=== PATIENT | female | born 1945 | race African-American/Black ===

== ENCOUNTER → 2017-07-31 | Outpatient (CLI) | payer MEDICARE, MEDICAID ==
[~2017-07-31] MED LIST: ASPIRIN81 MG PO; BIOTIN1000 MCG PO; CIPRO 500MG TA500 MG PO; CLINORIL GENER150 MG PO; CLOPIDOGREL75 M1; DONEPEZIL 5MG TA5 MG PO; GABAPENTIN100 M1 PO; INDOMETHACIN 2525 MG PO; LASIX20 MG PO; LISINOPRIL AND1 TAB PO; LISINOPRIL/HCTZ1 TA3 PO; LOSARTAN POTASS1 TA3; MACROBID 100MG100 MG PO; METAMUCIL1.7 GM PO; NOVOLIN N100 U/ML SC; NOVOLIN R100 U/ML SC; PRAVACHOL20 MG PO
--- NOTE | 2017-07-31 12:26 | RADIOLOGY REPORT PS360 ---
ARTERIAL/[id number] PVD peripheral vascular disease with stents bilaterally, ORDERING PHYSICIAN: TONIE PHILLIPS DPM PATIENT AGE: 71 years TECHNIQUE: Segmental pressures obtained of both right and left leg. These are compared to brachial blood pressure to yield index at each level sampled including summary NITHIN. The data sheets from the procedure are available in PACS FINDINGS Rest study only performed today No prior studies available for comparison. Blood pressures reported are in millimeters mercury. RIGHT LEG NITHIN = 0.4. Brachial BP: 184 Thigh BP: 83 Calf BP: 91 Ankle PT: 80 Ankle DP : 81 Digit =42 LEFT LEG NITHIN = 0.8 Brachial BPD: 177 Thigh BP: 183 Calf BP: 156 Ankle PT:141 Ankle DP: 122 Digit = 126 Pulses and waveforms: Diminished IMPRESSION: The ABIs are low bilaterally more severe on the right compared to the left with the right NITHIN of 0.4 and left NITHIN of 0.7. Consistent with severe arterial disease on the right and moderate arterial disease on the left. Consider CT angiography for further evaluation. Suspect a stenosis in the right iliac or common femoral artery due to the drop in pressure in the thigh.
== END ==
LOC: RT 09:50
DX: I73.9 Peripheral vascular disease, unspecified (principal)

== ENCOUNTER → 2017-09-18 | Day surgery (SDC) | payer MEDICARE, MEDICAID ==
[2017-09-18 09:05] LABS: LYMPH # 1.8 K/mm3 (0.7-4.5)
[2017-09-18 09:12] LABS: HEMOGLOBIN 15.5 g/dL (12.2-16.2)
[2017-09-18 09:19] LABS: BUN 18 mg/dL (7-18)
[2017-09-18 09:22] LABS: GFR (ESTIMATED) 82 ML/MIN (59-)
--- NOTE | 2017-09-18 15:33 | RADIOLOGY REPORT PS360 ---
CARDIAC CATHETERIZATION DATE OF CATHETERIZATION:09/18/2017 3:18 PM PROCEDURES: 1. Catheter placement in the abdominal aorta 2. Abdominal aortography 3. Repositioning of the catheter in the abdominal aorta 4. Bilateral iliofemoral runoff 5. Catheter placement in the right anterior tibialis artery 6. Right anterior tibialis artery angiography 7. Angioplasty stent deployment to the right popliteal artery and right superficial femoral artery INDICATION FOR TEST: 1. NITHIN 0.4 right side 2. Terrell claudication class IV 3. Severe peripheral artery disease 4. Diabetes Informed consent was obtained prior to the procedure. COMPLICATIONS: None ESTIMATED BLOOD LOSS: Less than 10 ml. TECHNIQUE: One percent lidocaine was used to anesthetize the left groin. Left femoral artery was accessed via the central technique and a 5 [place] sheath was placed in the right femoral artery. A pigtail catheter was placed in the abdominal aorta and abdominal aortography was performed. The catheter was then repositioned and bilateral iliofemoral runoff was performed. The JR4 catheter was used to cannulate the right common iliac artery and an advantage wire was placed in the right superficial femoral artery. The sheath was exchanged for a 6 [place] destination sheath. Heparin was given at 100 units per kilo. Using a trauma laser catheter and advantage wire was used to push through the occlusion. Using fluoroscopy the wire was placed distally in the anterior tibialis artery and the trauma laser was advanced. The wire was removed and angiography was performed. A 4 mm balloon was used to predilate the popliteal artery and superficial femoral artery. Following this a 6 mm x 80 mm Marquez absolute pro stent was placed in the popliteal artery while an additional 6 mm x 80 mm stent was placed proximally into the SFA. A 5 mm x 1 50 mm balloon was taken to 12 and 14 maninder to post dilate. At the end of the procedure angiography demonstrated wide patency of the proximal popliteal artery and superficial femoral artery. The patient transferred the postop holding area in stable condition for sheath removal. Protamine was given per protocol. ANGIOGRAPHIC RESULTS: The suprarenal abdominal aorta is normal The mesenteric arteries are normal the bilateral renal arteries are singular and normal The infrarenal abdominal aorta has eccentric 20% stenoses The right common iliac artery has a proximal eccentric 40% stenosis producing a 20 mm gradient The left common iliac artery has a proximal 30% stenosis The Bilateral internal iliac arteries are patent The right external iliac artery is normal The left external iliac artery has a stent throughout its segment which has proximal 30% in-stent restenosis. The bilateral common femoral arteries are patent. The right common femoral artery has 30% diffuse concentric stenoses while the left is normal The bilateral profunda femoris arteries are normal The right superficial femoral artery is patent in its very proximal segment and then occluded throughout its mid segment and reconstitutes at the popliteal artery at Rikki's canal. The distal popliteal artery is subtotally occluded and fills the peroneal artery via collaterals The anterior tibialis artery is patent after receiving collaterals from the profunda femoris The left superficial femoral artery is patent in the proximal segment with a mid vessel 50% stenosis as it extends into a diffusely diseased popliteal artery with multiple 3040% stenoses. The anterior tibialis artery is patent proximally with severe disease in the mid segment while the peroneal and posterior tibialis artery are both proximally occluded IMPRESSION: 1. 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 Successful percutaneous revascularization of the proximal popliteal artery and proximal mid distal superficial femoral artery 100% occlusion reduced to 0% with 2 self-expanding stents 3. Severe infrageniculate right peripheral artery disease as described above 4. Severe left-sided infrageniculate peripheral artery disease as described above PLAN: 1. Aspirin Plavix 2. LDL less than 55 3. Risk factor modification 4. Cardiac and peripheral artery disease physical therapy/rehabilitation 5. Aggressive control of diabetes and associated risk factors
[2017-09-18 16:45] VITALS: BP 135/45
[2017-09-18 17:15] VITALS: BP 137/62
[2017-09-18 17:45] VITALS: BP 120/60
[2017-09-18 18:45] VITALS: BP 114/51
[2017-09-18 19:45] VITALS: BP 144/71
== END ==
LOC: CATHLAB 08:02
PROVIDERS: Internal Medicine
PROC: 047M34Z Dilation of Right Popliteal Artery with Drug-eluting Intraluminal Device, Percutaneous Approach (ICD-10-PCS; 2017-09-18)
PROC: 047K34Z Dilation of Right Femoral Artery with Drug-eluting Intraluminal Device, Percutaneous Approach (ICD-10-PCS; 2017-09-18)
PROC: B41F1ZZ Fluoroscopy of Right Lower Extremity Arteries using Low Osmolar Contrast (ICD-10-PCS; 2017-09-18)
PROC: B41D1ZZ Fluoroscopy of Aorta and Bilateral Lower Extremity Arteries using Low Osmolar Contrast (ICD-10-PCS; principal; 2017-09-18 08:30)
DX: I73.9 Peripheral vascular disease, unspecified (principal); E11.8 Type 2 diabetes mellitus with unspecified complications; I77.1 Stricture of artery
CPT/HCPCS: C1725; C1766; C1769; C1876; C1894; J1644; J2720; Q9966